=== PATIENT | female | born 1955 | race Caucasian/White ===

== ENCOUNTER → 2020-08-15 | Outpatient (CLI) | payer MEDICARE ==
[~2020-08-15] MED LIST: FOLIC ACID PO; IOPAMIDOL 370 MG/ML 200 ML INFUS..BTL INJ ONE; LEVAQUIN250 MG PO; PANTOPRAZOLE SO40 MG PO; PROMETHAZINE12.5 M1 PO; PROTONIX; SODIUM CHLORIDE 0.9% 500ML 500 ML ONE; SODIUM CHLORIDE 0.9% 50ML 50 ML ONE; ZEGRID
[2020-08-15 12:06] LABS: CREATININE, SERUM 1.06 mg/dL (0.57-1.11)
== END ==
LOC: CT 11:21
PROVIDERS: ATTEND Family Medicine
DX: R51.9 Headache, unspecified (principal); Z86.011 Personal history of benign neoplasm of the brain
CPT/HCPCS: 36415; 70470; 71250; 82565; 84520; 96360; J7040; Q9967

== ENCOUNTER → 2020-10-12 | Day surgery (SDC) | payer MEDICARE ==
[2020-10-10 11:16] LABS: BASOPHILS # (AUTO) 0.1 (0.0-0.1); BASOPHILS % 0.7 % (0.0-1.0); EOSINOPHILS # (AUTO) 0.1 (0.0-0.4); EOSINOPHILS % 0.8 % (0.0-6.0); HEMATOCRIT 43.6 % (34.2-44.1); LYMPHOCYTES # (AUTO) 1.9 (1.0-3.2); LYMPHOCYTES % 19.2 % (18.0-39.1); MEAN CORPUSCULAR HEMOGLOBIN 30.2 pg (28-32); MEAN CORPUSCULAR HGB CONC 32.1 g/dL (31-35); MEAN CORPUSCULAR VOLUME 94.2 fL (81-99); MONOCYTES # (AUTO) 0.6 (0.2-0.8); MONOCYTES % 5.5 % (4.4-11.3); NEUTROPHILS # (AUTO) 7.4 (2.1-6.9); PLATELET COUNT 234 x10e3/uL (140-360); RED BLOOD COUNT 4.63 x10e6/uL (3.6-5.1); RED CELL DISTRIBUTION WIDTH 12.6 % (11.7-14.4)
[~2020-10-12] MED LIST changes: +B COMPLEX1 EACH PO; +DIAZEPAM5 MG PO; +FENTANYL CITRATE/PF 100MCG/2 ML INJ ONE; -IOPAMIDOL 370 MG/ML 200 ML INFUS..BTL INJ ONE; +LIDOCAINE HCL 2% LOCAL INJ 5 ML SDV VIAL INJ ONE; +MAGNESIUM OXID400 MG PO; +MELATONIN3 MG PO; +METOCLOPRAMIDE HCL 10 MG/2ML VIAL ONE; +MIDAZOLAM HCL 2 MG/2 ML VIAL ONE; +PROPOFOL IV EMULSION 10 MG/ML 20 ML VIAL ONE; -SODIUM CHLORIDE 0.9% 500ML 500 ML ONE; -SODIUM CHLORIDE 0.9% 50ML 50 ML ONE; +VIT B12 PO; +VIT C PO; +ZOLPIDEM TARTRAT5 MG PO
[2020-10-12 11:05] VITALS: BP 128/82
== END | disposition home or self-care (01) ==
LOC: OR 06:45
PROVIDERS: ATTEND Internal Medicine Gastroenterology
DX: K20.90 Esophagitis, unspecified without bleeding (principal); D12.0 Benign neoplasm of cecum; D12.3 Benign neoplasm of transverse colon; D12.5 Benign neoplasm of sigmoid colon; K31.7 Polyp of stomach and duodenum; K29.50 Unspecified chronic gastritis without bleeding; K57.30 Diverticulosis of large intestine without perforation or abscess without bleeding; K64.8 Other hemorrhoids; K90.0 Celiac disease; G47.33 Obstructive sleep apnea (adult) (pediatric); Z01.810 Encounter for preprocedural cardiovascular examination; Z01.812 Encounter for preprocedural laboratory examination; Z68.34 Body mass index [BMI] 34.0-34.9, adult; Z85.118 Personal history of other malignant neoplasm of bronchus and lung
CPT/HCPCS: 36415; 43239; 43450; 45380; 45385; 85025; 93005; J2001; J2250; J2704; J2765; J3010

== ENCOUNTER → 2021-01-17 | Day surgery (SDC) | payer MEDICARE ==
[2021-01-15 11:09] LABS: BASOPHILS # (AUTO) 0.1 (0.0-0.1); BASOPHILS % 0.5 % (0.0-1.0); EOSINOPHILS # (AUTO) 0.1 (0.0-0.4); EOSINOPHILS % 0.6 % (0.0-6.0); HEMOGLOBIN 14.7 g/dL (12.0-16.0); LYMPHOCYTES # (AUTO) 2.8 (1.0-3.2); LYMPHOCYTES % 25.5 % (18.0-39.1); MEAN CORPUSCULAR HGB CONC 32.7 g/dL (31-35); MEAN CORPUSCULAR VOLUME 91.8 fL (81-99); MONOCYTES # (AUTO) 0.7 (0.2-0.8); MONOCYTES % 6.8 % (4.4-11.3); NEUTROPHILS # (AUTO) 7.1 (2.1-6.9); PLATELET COUNT 275 x10e3/uL (140-360); RED CELL DISTRIBUTION WIDTH 12.3 % (11.7-14.4)
[~2021-01-17] MED LIST changes: +FLUCONAZOLE 200 MG/100 ML 100 ML IV ONE; -LIDOCAINE HCL 2% LOCAL INJ 5 ML SDV VIAL INJ ONE; -METOCLOPRAMIDE HCL 10 MG/2ML VIAL ONE; +NYSTATIN100000 UNI PO; +OMEGA 3 1,0001 EACH PO; -PROPOFOL IV EMULSION 10 MG/ML 20 ML VIAL ONE
[2021-01-17 11:35] VITALS: BP 129/80
== END | disposition home or self-care (01) ==
LOC: OR 08:11
PROVIDERS: ATTEND Internal Medicine Gastroenterology
DX: K31.7 Polyp of stomach and duodenum (principal); K29.70 Gastritis, unspecified, without bleeding; K22.2 Esophageal obstruction; K20.90 Esophagitis, unspecified without bleeding; G47.33 Obstructive sleep apnea (adult) (pediatric); G89.29 Other chronic pain; F41.9 Anxiety disorder, unspecified; F32.A Depression, unspecified; Z88.6 Allergy status to analgesic agent; Z88.0 Allergy status to penicillin; Z01.810 Encounter for preprocedural cardiovascular examination; Z01.812 Encounter for preprocedural laboratory examination; Z20.822 Contact with and (suspected) exposure to COVID-19; Z68.33 Body mass index [BMI] 33.0-33.9, adult; Z86.19 Personal history of other infectious and parasitic diseases; Z86.010 Personal history of colon polyps
CPT/HCPCS: 36415; 43251; 43450; 85025; 93005; C9113; J1450; J2250; J3010; U0002; 43239

== ENCOUNTER → 2021-02-15 | Outpatient (CLI) | payer MEDICARE ==
[~2021-02-15] MED LIST changes: -FENTANYL CITRATE/PF 100MCG/2 ML INJ ONE; -FLUCONAZOLE 200 MG/100 ML 100 ML IV ONE; -MIDAZOLAM HCL 2 MG/2 ML VIAL ONE
== END ==
LOC: CT 10:48
PROVIDERS: ATTEND Internal Medicine Critical Care Medicine
DX: R06.02 Shortness of breath (principal); C34.90 Malignant neoplasm of unspecified part of unspecified bronchus or lung; C34.10 Malignant neoplasm of upper lobe, unspecified bronchus or lung; D35.00 Benign neoplasm of unspecified adrenal gland; J45.909 Unspecified asthma, uncomplicated; M54.9 Dorsalgia, unspecified; K21.9 Gastro-esophageal reflux disease without esophagitis; R51.9 Headache, unspecified; Z90.2 Acquired absence of lung [part of]; N28.9 Disorder of kidney and ureter, unspecified; M62.81 Muscle weakness (generalized); K76.9 Liver disease, unspecified; G47.33 Obstructive sleep apnea (adult) (pediatric); J01.40 Acute pansinusitis, unspecified; G63 Polyneuropathy in diseases classified elsewhere; Z87.891 Personal history of nicotine dependence
CPT/HCPCS: 71250

== ENCOUNTER → 2023-04-21 | Outpatient (REF) | payer MEDICARE ==
[~2023-04-21] MED LIST changes: +IOPAMIDOL 370 MG/ML 100 ML INFUS..BTL INJ ONE
[2023-04-21 11:44] LABS: CREATININE, SERUM 0.94 mg/dL (0.57-1.11)
== END ==
LOC: CT 10:45
PROVIDERS: ATTEND Nurse Practitioner Family
DX: J06.9 Acute upper respiratory infection, unspecified (principal); D35.00 Benign neoplasm of unspecified adrenal gland; J45.909 Unspecified asthma, uncomplicated; M54.9 Dorsalgia, unspecified; Z87.891 Personal history of nicotine dependence; K21.9 Gastro-esophageal reflux disease without esophagitis; R51.9 Headache, unspecified; Z90.2 Acquired absence of lung [part of]; G47.00 Insomnia, unspecified; N28.9 Disorder of kidney and ureter, unspecified; C34.10 Malignant neoplasm of upper lobe, unspecified bronchus or lung; M62.81 Muscle weakness (generalized); K76.9 Liver disease, unspecified; C34.90 Malignant neoplasm of unspecified part of unspecified bronchus or lung; G47.33 Obstructive sleep apnea (adult) (pediatric); J01.40 Acute pansinusitis, unspecified; G63 Polyneuropathy in diseases classified elsewhere
CPT/HCPCS: 36415; 71260; 82565; 84520; Q9967

== ENCOUNTER 2024-03-05 20:47 | Emergency (ER) | payer MEDICARE ==
[~2024-03-05] VITALS: Ht 165.1 cm; Wt 88.9 kg
[~2024-03-05 20:47] MED LIST changes: -IOPAMIDOL 370 MG/ML 100 ML INFUS..BTL INJ ONE; +ZETIA10 MG PO; +lisinopril PO
[2024-03-05 21:41] LABS: BASOPHILS % 0.3 % (0.0-1.0); EOSINOPHILS % 0.2 % (0.0-6.0); HEMATOCRIT 42.2 % (34.2-44.1); HEMOGLOBIN 13.7 g/dL (12.0-16.0); LYMPHOCYTES % 13.2 % (18.0-39.1); MEAN CORPUSCULAR HEMOGLOBIN 30.9 pg (28-32); MEAN CORPUSCULAR HGB CONC 32.5 g/dL (31-35); MEAN CORPUSCULAR VOLUME 95.3 fL (81-99); MONOCYTES % 6.8 % (4.4-11.3); NEUTROPHILS # (AUTO) 12.1 (2.1-6.9); PLATELET COUNT 208 x10e3/uL (140-360); RED BLOOD COUNT 4.43 x10e6/uL (3.6-5.1); RED CELL DISTRIBUTION WIDTH 12.4 % (11.7-14.4); WHITE BLOOD COUNT 15.27 x10e3/uL (4.8-10.8)
[2024-03-05] MEDS: SODIUM CHLORIDE 0.9% 1000ML 1,000 ML IV STA (21:43)
[2024-03-05] MEDS: ONDANSETRON HCL INJ 2MG/ML 2ML 2 MG/ML VIAL IV STA (21:44)
[2024-03-05 21:55] LABS: ALANINE AMINOTRANSFERASE 10 IU/L (0-55); ALBUMIN 3.7 g/dL (3.5-5.0); ALBUMIN/GLOBULIN RATIO 1.1 (0.8-2.0); ALKALINE PHOSPHATASE 86 IU/L (40-150); ANION GAP 13.6 mmol/L (8-16); BILIRUBIN,TOTAL 0.6 mg/dL (0.2-1.2); BLOOD UREA NITROGEN 14 mg/dL (7-26); BUN/CREATININE RATIO 14 (6-25); CALCIUM 9.9 mg/dL (8.4-10.2); CARBON DIOXIDE 23 mmol/L (22-29); CHLORIDE 106 mmol/L (98-107); CREATINE KINASE 153 IU/L (29-168); EST GLOMERULAR FILTRATION RATE 61 ML/MIN (>=60); GLUCOSE 121 mg/dL (74-118); LIPASE 21 U/L (8-78); POTASSIUM 4.6 mmol/L (3.5-5.1); SODIUM 138 mmol/L (136-145); TOTAL PROTEIN 7.1 g/dL (6.5-8.1)
[2024-03-05 22:02] LABS: TROPONIN I < 0.001 ng/mL (0-0.300)
[2024-03-05 22:12] LABS: CORONAVIRUS COVID-19 AG NEGATIVE (NEGATIVE); INFLUENZA A AG NEGATIVE (NEGATIVE); INFLUENZA B AG NEGATIVE (NEGATIVE)
[2024-03-05] MEDS ORDERED: IOPAMIDOL 370 MG/ML 100 ML INFUS..BTL INJ ONE (22:37)
[2024-03-06 00:16] LABS: BACTERIA,URINE FEW /HPF; BILIRUBIN,URINE NEGATIVE (NEGATIVE); CLARITY,URINE CLEAR (CLEAR); COLOR,URINE YELLOW (YELLOW); EPITHELIAL CELLS,URINE FEW /LPF; GLUCOSE, URINE NEGATIVE (NEGATIVE); KETONES,URINE NEGATIVE (NEGATIVE); LEUKOCYTE ESTERASE ,URINE NEGATIVE (NEGATIVE); NITRITE,URINE NEGATIVE (NEGATIVE); PH,URINE 7 (5 - 7); PROTEIN,URINE DIPSTICK NEGATIVE (NEGATIVE); RBC,URINE 0-5 /HPF (0-5); URINE UROBILINOGEN 0.2 mg/dL (0.2 - 1); WBC,URINE (MAN) 0-5 /HPF (0-5)
[2024-03-06] MEDS ORDERED: METRONIDAZOLE500 MG PO (00:18)
[2024-03-06] MEDS ORDERED: CIPRO500 MG PO (00:18)
[2024-03-06] MEDS ORDERED: ONDANSETRON ODT4 MG PO (00:18)
[2024-03-06] MEDS ORDERED: KETOROLAC TROME10 MG PO (00:18)
[2024-03-06 00:25] VITALS: PULSE 99; RESP 17; TEMP 98.4; O2SAT 98
== END 2024-03-06 00:43 | disposition home or self-care (01) ==
LOC: ER 20:56
DX: R10.33 Periumbilical pain (principal); K57.32 Diverticulitis of large intestine without perforation or abscess without bleeding; R11.2 Nausea with vomiting, unspecified; K76.9 Liver disease, unspecified; R53.81 Other malaise; Z85.118 Personal history of other malignant neoplasm of bronchus and lung
CPT/HCPCS: 36415; 74177; 80053; 81001; 82550; 83690; 84484; 85025; 87428; 93005; 99284; J2405; J7030; Q9967

== ENCOUNTER → 2024-06-15 | Day surgery (SDC) | payer MEDICARE ==
[2024-06-06 11:40] LABS: BASOPHILS # (AUTO) 0.1 (0.0-0.1); BASOPHILS % 0.6 % (0.0-1.0); EOSINOPHILS # (AUTO) 0.1 (0.0-0.4); EOSINOPHILS % 0.6 % (0.0-6.0); HEMATOCRIT 44.6 % (34.2-44.1); HEMOGLOBIN 14.9 g/dL (12.0-16.0); LYMPHOCYTES # (AUTO) 2.3 (1.0-3.2); LYMPHOCYTES % 26.6 % (18.0-39.1); MEAN CORPUSCULAR HEMOGLOBIN 31.1 pg (28-32); MEAN CORPUSCULAR HGB CONC 33.4 g/dL (31-35); MEAN CORPUSCULAR VOLUME 93.1 fL (81-99); MONOCYTES # (AUTO) 0.6 (0.2-0.8); MONOCYTES % 6.9 % (4.4-11.3); NEUTROPHILS # (AUTO) 5.7 (2.1-6.9); NEUTROPHILS % 64.8 % (38.7-80.0); PLATELET COUNT 251 x10e3/uL (140-360); RED BLOOD COUNT 4.79 x10e6/uL (3.6-5.1); RED CELL DISTRIBUTION WIDTH 12.6 % (11.7-14.4)
[~2024-06-15] MED LIST changes: +BENZOCAINE/TETRACAINE/BUTAMBEN AERO SPRAY 56 GM CAN ONE; +CIPRO500 MG PO; +CO Q-10200 MG PO; +FOLIC ACID-VIT1 EACH PO; +GLUCAGON FOR INJ 1 MG VIAL ONE; +HYOSCYAMINE SULFATE 0.5 MG/ML INJ ONE; +K2-D3 5000 901 EACH PO; +KETOROLAC TROME10 MG PO; +L-THEANINE100 MG PO; +LISINOPRIL2.5 MG PO; +MCT OIL PO; +METOCLOPRAMIDE HCL 10 MG/2ML VIAL ONE; +METRONIDAZOLE500 MG PO; +ONDANSETRON ODT4 MG PO; +PHENYLEPHRINE HCL 1% 10 MG/ML VIAL ONE; +VITAMIN A2400 MCG PO; +VITAMIN B121000 MCG PO; +VITAMIN C1000 MG PO; +[UNRECOGNIZED DRUG - OTHER] PO; +[UNRECOGNIZED DRUG - OTHER] PO
[2024-06-15] MEDS: LACTATED RINGER'S 1,000 ML ONE (08:24)
[2024-06-15 10:40] VITALS: BP 117/73; PULSE 82; RESP 16; TEMP 97.5; O2SAT 98
== END | disposition home or self-care (01) ==
LOC: OR 07:10
PROVIDERS: ATTEND Internal Medicine Gastroenterology
DX: K31.7 Polyp of stomach and duodenum (principal); D12.3 Benign neoplasm of transverse colon; K22.2 Esophageal obstruction; K57.92 Diverticulitis of intestine, part unspecified, without perforation or abscess without bleeding; K21.9 Gastro-esophageal reflux disease without esophagitis; K44.9 Diaphragmatic hernia without obstruction or gangrene; K64.8 Other hemorrhoids; D49.6 Neoplasm of unspecified behavior of brain; Z01.810 Encounter for preprocedural cardiovascular examination; Z01.812 Encounter for preprocedural laboratory examination; Z79.899 Other long term (current) drug therapy
CPT/HCPCS: 36415; 43251; 43450; 45385; 85025; 93005 ×2; J1610; J1980; J2371; J2470; J2765; J7121; 43239; 45378

== ENCOUNTER 2024-06-18 13:25 | Emergency (ER) | payer MEDICARE ==
[~2024-06-18] VITALS: Ht 170.2 cm; Wt 90.7 kg
[~2024-06-18 13:25] MED LIST changes: -BENZOCAINE/TETRACAINE/BUTAMBEN AERO SPRAY 56 GM CAN ONE; -GLUCAGON FOR INJ 1 MG VIAL ONE; -HYOSCYAMINE SULFATE 0.5 MG/ML INJ ONE; -METOCLOPRAMIDE HCL 10 MG/2ML VIAL ONE; -PHENYLEPHRINE HCL 1% 10 MG/ML VIAL ONE
[2024-06-18 14:37] LABS: BASOPHILS % 0.5 % (0.0-1.0); EOSINOPHILS # (AUTO) 0.1 (0.0-0.4); EOSINOPHILS % 0.8 % (0.0-6.0); HEMATOCRIT 41.8 % (34.2-44.1); HEMOGLOBIN 14.2 g/dL (12.0-16.0); LYMPHOCYTES # (AUTO) 2.3 (1.0-3.2); LYMPHOCYTES % 26.9 % (18.0-39.1); MEAN CORPUSCULAR HEMOGLOBIN 30.5 pg (28-32); MEAN CORPUSCULAR VOLUME 89.7 fL (81-99); MONOCYTES # (AUTO) 0.6 (0.2-0.8); MONOCYTES % 7.4 % (4.4-11.3); NEUTROPHILS # (AUTO) 5.5 (2.1-6.9); NEUTROPHILS % 63.9 % (38.7-80.0); PLATELET COUNT 226 x10e3/uL (140-360); RED BLOOD COUNT 4.66 x10e6/uL (3.6-5.1); RED CELL DISTRIBUTION WIDTH 12.9 % (11.7-14.4); WHITE BLOOD COUNT 8.63 x10e3/uL (4.8-10.8)
[2024-06-18 14:56] LABS: CORONAVIRUS COVID-19 AG NEGATIVE (NEGATIVE); INFLUENZA A AG NEGATIVE (NEGATIVE); INFLUENZA B AG NEGATIVE (NEGATIVE)
[2024-06-18 15:00] LABS: INR 0.9; PROTHROMBIN TIME 12.7 seconds (11.9-14.5)
[2024-06-18 15:01] LABS: PARTIAL THROMBOPLASTIN TIME 23.5 seconds (23.8-35.5)
[2024-06-18 15:09] LABS: ALANINE AMINOTRANSFERASE 14 IU/L (0-55); ALBUMIN 3.7 g/dL (3.5-5.0); ALBUMIN/GLOBULIN RATIO 1.1 (0.8-2.0); ALKALINE PHOSPHATASE 72 IU/L (40-150); ANION GAP 15.3 mmol/L (8-16); BILIRUBIN,TOTAL 0.4 mg/dL (0.2-1.2); BLOOD UREA NITROGEN 17 mg/dL (7-26); BUN/CREATININE RATIO 20 (6-25); CALCIUM 9.6 mg/dL (8.4-10.2); CARBON DIOXIDE 19 mmol/L (22-29); CHLORIDE 108 mmol/L (98-107); CREATINE KINASE 68 IU/L (29-168); CREATININE, SERUM 0.83 mg/dL (0.57-1.11); EST GLOMERULAR FILTRATION RATE 76 ML/MIN (>=60); GLUCOSE 98 mg/dL (74-118); POTASSIUM 4.3 mmol/L (3.5-5.1); SODIUM 138 mmol/L (136-145)
[2024-06-18 15:17] LABS: TROPONIN I < 0.001 ng/mL (0-0.300)
[2024-06-18 15:58] LABS: CLARITY,URINE CLOUDY (CLEAR); COLOR,URINE YELLOW (YELLOW); LEUKOCYTE ESTERASE ,URINE 1+ (NEGATIVE); PH,URINE 5.5 (5 - 7)
[2024-06-18 15:59] LABS: BILIRUBIN,URINE NEGATIVE (NEGATIVE); GLUCOSE, URINE NEGATIVE (NEGATIVE); KETONES,URINE NEGATIVE (NEGATIVE); NITRITE,URINE NEGATIVE (NEGATIVE); PROTEIN,URINE DIPSTICK NEGATIVE (NEGATIVE); URINE UROBILINOGEN 0.2 mg/dL (0.2 - 1)
[2024-06-18 16:07] LABS: BACTERIA,URINE FEW /HPF; EPITHELIAL CELLS,URINE MODERATE /LPF; MUCUS,URINE FEW; WBC,URINE (MAN) 0-5 /HPF (0-5)
[2024-06-18 17:10] VITALS: PULSE 71; RESP 18; TEMP 98.6; O2SAT 98
[2024-06-18] MEDS: SODIUM CHLORIDE 0.9% 500ML 500 ML IV ONE (17:38)
== END 2024-06-18 17:15 | disposition home or self-care (01) ==
LOC: ER 14:10
DX: R42 Dizziness and giddiness (principal); I10 Essential (primary) hypertension; E78.5 Hyperlipidemia, unspecified; K21.9 Gastro-esophageal reflux disease without esophagitis; F41.9 Anxiety disorder, unspecified; F32.A Depression, unspecified; Z85.118 Personal history of other malignant neoplasm of bronchus and lung
CPT/HCPCS: 36415; 71045; 80053; 81001; 82550; 83735; 84484; 85025; 85610; 85730; 93005; 99284

== ENCOUNTER → 2024-12-29 | Outpatient (REF) | payer MEDICARE ==
[~2024-12-29] MED LIST changes: +IOPAMIDOL 370 MG/ML 100 ML INFUS..BTL INJ ONE; +SODIUM CHLORIDE 0.9% 250ML 250 ML ONE
== END ==
LOC: CT 13:28
PROVIDERS: ATTEND Internal Medicine Critical Care Medicine
DX: G44.009 Cluster headache syndrome, unspecified, not intractable (principal); J98.4 Other disorders of lung
CPT/HCPCS: 70450; 71260; J7050; Q9967